=== PATIENT | female | born 1975 | race Two or more races ===

== ENCOUNTER 2020-02-17 14:00 | Inpatient (IN) | payer OTHER ==
[~2020-02-17] VITALS: Ht 157.5 cm; Wt 78.0 kg
[2020-02-17] MEDS ORDERED: CARAFATE1 GM PO (14:22)
[2020-02-17] MEDS ORDERED: PROTONIX20 MG PO (14:22)
[2020-02-17] MEDS ORDERED: KETO10TA2 PO (14:22)
--- NOTE | 2020-02-17 14:22 | NUR ---
PACIENTE ALERTA Y ORIENTADA EN OLLIE ABIMAEL ESFERAS, CON HX DE COLITIS, LLEGA A ER REFIRIENDO DOLOR ABDOMINAL EN CUADRANTES SUPERIOR E INFERIOR DERECHO DESDE HACE 5-6 ROSENBERG.
--- NOTE | 2020-02-17 17:23 | NUR ---
MR JARRETT ORIENTA PTE SOBRE TX MEDICO EL CUAL REFIERE ENTENDER.SE LE EXTRAEN MUESTRAS BAJO MEDIDAS ASEPTICAS,SE CANALIZA Y SE ADMINISTRAN MEDICAMENTOS PEG ORDEN MEDICA.SE NOTIFICA ESTUDIO PENDIENTE.
== END 2020-02-23 20:15 | disposition home or self-care (01) | DRG 392 ==
LOC: ER 14:00 → SURH 23:30
PROVIDERS: ADMIT Colon & Rectal Surgery; ATTEND Colon & Rectal Surgery
PROC: BW21ZZZ Computerized Tomography (CT Scan) of Abdomen and Pelvis (ICD-10-PCS; 2020-02-17)
PROC: BW30YZZ Magnetic Resonance Imaging (MRI) of Abdomen using Other Contrast (ICD-10-PCS; principal; 2020-02-21)
DX: K59.09 Other constipation (principal); J45.20 Mild intermittent asthma, uncomplicated; E55.9 Vitamin D deficiency, unspecified; K29.60 Other gastritis without bleeding; M41.34 Thoracogenic scoliosis, thoracic region; Z20.828 Contact with and (suspected) exposure to other viral communicable diseases; N28.1 Cyst of kidney, acquired
CPT/HCPCS: 74185